=== PATIENT | female | born 1975 | race Caucasian/White ===

== ENCOUNTER 2018-03-02 04:59 | Emergency (ER) | payer SELFPAY ==
[2018-03-02 05:05] VITALS: BP 155/88; PULSE 76; RESP 22; TEMP 36.7; O2SAT 98; BMI 27.4
--- NOTE | 2018-03-02 05:09 | DI.RAD.S_ITS ---
PROCEDURE: XR CHEST 1V INDICATIONS: chest pain TECHNIQUE: One view of the chest was acquired. COMPARISON: None. FINDINGS: Surgical changes and devices: None. Lungs and pleura: No pleural effusions or pneumothorax. Lungs are clear. Linear radiopacity projecting over the right posterior sixth rib and left upper quadrant are likely artifacts. Mediastinum: Mediastinal contours appear normal. Heart size is normal. Bones and chest wall: No suspicious bony lesions. Right upper quadrant 2.8 cm mass may represent cholelithiasis. IMPRESSION: 1. No radiographic evidence of acute cardiopulmonary pathology. 2. Possible cholelithiasis. Dictated by: Darinel Miles M.D. on 03/02/2018 at 9:07 Approved by: Darinel Miles M.D. on 03/02/2018 at 9:09
[2018-03-02] MEDS: MAG HYDROX/ALUMINUM/SIMETH SUS 20 ML, LIDOCAINE VISCOUS 2% 15 ML PO (05:16)
--- NOTE | 2018-03-02 05:17 | ED.CHESTPAIN ---
HPI - Chest Pain General Chief Complaint: Chest Pain Stated Complaint: CHEST PAIN Time Seen by Provider: 03/02/18 05:08 Source: patient Mode of arrival: ambulatory Limitations: no limitations History of Present Illness HPI narrative: Otherwise healthy 43-year-old female here for evaluation of left-sided chest pain. Patient states she was woken from sleep at 0130 in the morning with a left-sided chest pain. She states that she is holding her breath because it hurts to take a big deep breath. Not worse with palpation. She states that she thinks it is heartburn. She states that she did eat since she does just prior to going to bed. She states that she had 1 episode just like this approximately 9 months ago and ?took a pain pill went to bed ?and has not had any symptoms since then. No prior cardiac history. Did vomit once before coming into the ER. Related Data Previous Rx's Medication Instructions Recorded sucralfate [Carafate] 5 ml PO QID #420 ml 03/02/18 Allergies Allergy/AdvReac Type Severity Reaction Status Date / Time Sulfa (Sulfonamide Allergy Unknown Verified 03/02/18 05:08 Antibiotics) Review of Systems Constitutional Denies chills, Denies fever(s), Denies lethargy and Denies weakness ENT Ears, Nose, Mouth, and Throat: Denies vertigo Cardiovascular Reports chest pain, Reports chest pain at rest, Denies diaphoresis, Denies syncope, Denies rapid heart rate, Denies irregular heart rhythm, Denies radiating jaw, neck or arm pain, Denies palpitations and Denies dyspnea Respiratory Denies cough and Denies dyspnea Gastrointestinal Gastrointestinal: Denies diarrhea, Reports nausea and Denies vomiting Genitourinary Denies hematuria, Denies flank pain, Denies urinary incontinence and Denies urinary urgency Integumentary/Breasts Denies pruritus, Denies erythema, Denies rash and Denies wounds Neurologic Denies vertigo, Denies syncope and Denies weakness Endocrine Denies palpitations Hematologic/Lymphatic Denies easy bruising Exam Initial Vital Signs Initial Vital Signs: Vital Signs Temperature 98.1 F 03/02/18 05:05 Pulse Rate 76 03/02/18 05:05 Respiratory Rate 22 03/02/18 05:05 Blood Pressure 155/88 H 03/02/18 05:05 Pulse Oximetry 98 03/02/18 05:05 Chest Chest: normal inspection of the chest Resp Effort & Inspection: normal respiratory effort, able to speak in complete sentences, no respiratory distress and no use of accessory muscles Auscultation: clear to auscultation bilaterally, no rales, no rhonchi and no wheezes Cardio Rate: regular rate Rhythm: regular rhythm Heart Sounds: no click, no gallops, no murmurs and no rubs Pulses: normal peripheral pulses GI Inspection: non-distended Palpation: soft, no hepatosplenomegaly, No guarding, No pulsatile mass and No tender Auscultation: normal bowel sounds Skin General: no rashes or lesions noted, No jaundice and No petechiae Extrem General: full ROM, no clubbing, cyanosis or edema, no pedal edema and no calf tenderness Course Orders Ordered: ED Orders 03/02/18 05:09 XR chest 1V Stat EKG-12 Lead Stat 03/02/18 05:15 Basic Metabolic Panel Stat Complete Blood Count AUTO DIFF Stat D Dimer Stat Troponin I Stat Discontinued Medications Aspirin (Aspirin Chew) 324 mg PO NOW ONE Stop: 03/02/18 05:10 Last Admin: 03/02/18 05:18 Dose: 324 mg Al Hydrox/Mg Hydrox/Simethicone 20 ml/ Lidocaine HCl 15 ml 0 ml PO NOW ONE Stop: 03/02/18 05:14 Last Admin: 03/02/18 05:16 Dose: 35 ml Vital Signs - 8 hr 03/02/18 05:05 03/02/18 05:53 Temperature 98.1 F Pulse Rate 76 66 Respiratory Rate 22 16 Blood Pressure 155/88 H Blood Pressure [Left Arm] 148/88 H Pulse Oximetry 98 99 MDM - Chest Pain Lab Data Attestation: I reviewed the patient's lab results. Result diagrams: 03/02/18 05:15 03/02/18 05:15 Lab Results 03/02/18 03/02/18 03/02/18 Range/Units 05:15 05:15 05:15 WBC 12.6 H (4.5-11.0) X10^3/uL RBC 4.72 (4.0-5.2) X10^6/uL Hgb 15.3 (12.0-16.0) g/dL Hct 43.7 (36-46) % MCV 92.5 (80-100) fL MCH 32.4 (26-34) PG MCHC 35.0 (30-36) % RDW 14.3 (11.6-14.8) % Plt Count 240 (150-400) X10^3/uL Neut % (Auto) 84.8 H (50-75) % Lymph % (Auto) 11.2 L (25-40) % [place] % (Auto) 3.3 (3-14) % Eos % (Auto) 0.4 L (2-4) % Baso % (Auto) 0.3 (0-2) % Neut # (Auto) 22899 H (3124-1731) /uL D-Dimer 208 (<230) ng/mL Sodium 142 (137-145) mmol/L Potassium 3.9 (3.4-5.1) mmol/L Chloride 108 H (98-107) mmol/L Carbon Dioxide 21 L (22-32) mmol/L BUN 18 H (7-17) mg/dL Creatinine 0.80 (0.52-1.04) mg/dL Estimated GFR > 60.0 (>60) mL/min BUN/Creatinine Ratio 22.5 H (6-22) Glucose 112 H (70-100) mg/dL Calcium 10.4 H (8.4-10.2) mg/dL Troponin I < 0.012 (0.01-0.034) ng/mL Imaging Data Chest x-ray: Attestation: I personally reviewed and interpreted this imaging study as follows: My impression: No pneumothorax Normal size heart No pneumonia ECG Data Attestation: I personally reviewed and interpreted this ECG as follows: Prior ECG tracings: not available for review Interpretation: Sinus rhythm Ventricular rate of 63 Normal QRS Normal axis Normal QTC No ST T wave changes MDM Narrative Medical decision making narrative: Heart score of 1, patient's symptoms greatly improved with GI cocktail. Patient states that she feels like it is reflux disease. We did discuss treatment for this. Will give her prescription for Carafate. She was given return precautions. Patient was asking to leave the emergency department. Discharge Plan Departure Patient Disposition: Home, Self-Care Clinical Impression: Atypical chest pain, Gastroesophageal reflux disease Instructions: DI for Atypical Chest Pain, GERD Diet Activity Restrictions/Additional Instructions: Take the medication as directed. Call your primary care doctor for a follow-up to discuss further workup. Return to the emergency department for any new or worsening symptoms Prescriptions: New sucralfate [Carafate] 100 mg/mL suspension 5 ml PO QID Qty: 420 RF: 0
[2018-03-02] MEDS: ASPIRIN 81 MG TAB 324 MG PO (05:18)
--- NOTE | 2018-03-02 05:25 | PC.NURSE ---
pt reports acid and bile vomit before arrival
[2018-03-02 05:27] LABS: Add Manual Diff / Slide Review NO; Basophils Percent Auto 0.3 % (0-2); Eosinophils Percent Auto 0.4 % (2-4); Hematocrit 43.7 % (36-46); Hemoglobin 15.3 g/dL (12.0-16.0); Lymphocytes Percent Auto 11.2 % (25-40); Mean Corpuscular Hemoglobin 32.4 PG (26-34); Mean Corpuscular Volume 92.5 fL (80-100); Monocytes Percent Auto 3.3 % (3-14); Neutrophils Absolute Auto 10700 /uL (3000-5900); Neutrophils Percent Auto 84.8 % (50-75); Platelet Count 240 X10^3/uL (150-400); Red Blood Cell Count 4.72 X10^6/uL (4.0-5.2); Red Cell Distribution Width 14.3 % (11.6-14.8); White Blood Cell Count 12.6 X10^3/uL (4.5-11.0)
[2018-03-02 05:38] LABS: BUN Creatinine Ratio 22.5 (6-22); Blood Urea Nitrogen 18 mg/dL (7-17); Calcium 10.4 mg/dL (8.4-10.2); Carbon Dioxide 21 mmol/L (22-32); Chloride 108 mmol/L (98-107); D Dimer 208 ng/mL (<230); Estimated Glomerular Filt Rate > 60.0 mL/min (>60); Glucose 112 mg/dL (70-100); HEMOLYSIS < 15 (0-50); Potassium 3.9 mmol/L (3.4-5.1); Sodium 142 mmol/L (137-145)
[2018-03-02 05:50] LABS: Troponin I < 0.012 ng/mL (0.01-0.034)
[2018-03-02 05:53] VITALS: BP 148/88; PULSE 66; RESP 16; O2SAT 99
== END 2018-03-02 06:00 | disposition home or self-care (01) ==
PROVIDERS: Emergency Provider Emergency Medicine
DX: K21.9 Gastro-esophageal reflux disease without esophagitis (principal); R07.89 Other chest pain
CPT/HCPCS: 36591; 71045; 80048; 84484; 85025; 85379; 93005; 99282; 99285